=== PATIENT | male | born 1945 | race Caucasian/White ===

== ENCOUNTER → 2025-02-27 10:52 | Outpatient (REF) | payer MEDICARE, BC, SELFPAY | LOC: HWRCS 10:52 | PROVIDERS: ATTENDING PHYSICIAN Internal Medicine; FAMILY PHYSICIAN Family Medicine | DX: I25.10 Atherosclerotic heart disease of native coronary artery without angina pectoris (principal) | CPT/HCPCS: 78452; 93017; A9500 ==